=== PATIENT | male | born 1995 | race Caucasian/White ===

== ENCOUNTER 2023-05-07 13:44 | Emergency (ER) | payer OTHER ==
[~2023-05-07] VITALS: Ht 185.4 cm; Wt 110.0 kg
[2023-05-07 14:39] VITALS: BP 137/68; PULSE 74; RESP 16; TEMP 98.6
[2023-05-07] MEDS: TETanus/Pertussis (Acell)/Diphther VAC/PF (Tdap-Adult) 0.5ml syringe IMVAC ONE (19:13)
[2023-05-07] MEDS ORDERED: CEPH-585 PO (19:19)
== END 2023-05-07 19:40 | disposition home or self-care (01) ==
LOC: ER 13:45
DX: S61.211A Laceration without foreign body of left index finger without damage to nail, initial encounter (principal); X58.XXXA Exposure to other specified factors, initial encounter; Y93.89 Activity, other specified; Y92.89 Other specified places as the place of occurrence of the external cause; Y99.8 Other external cause status
CPT/HCPCS: 12001; 73130; 90471; 90715; 99283